=== PATIENT | female | born 1945 | race Caucasian/White ===

== ENCOUNTER 2018-07-24 13:18 | Emergency (ER) | payer SELFPAY | END 2018-07-24 15:00 | disposition left against medical advice (07) | LOC: FTE 13:18 | DX: Z53.21 Procedure and treatment not carried out due to patient leaving prior to being seen by health care provider (principal) ==

== ENCOUNTER 2018-07-26 11:38 | Observation (INO) | payer MEDICARE, MEDICAID ==
[2018-07-26] MEDS: ASPIRIN 325 MG TAB PO (13:40)
[2018-07-26 14:16] LABS: ADD MAN DIFF? NO
[2018-07-26 14:19] LABS: ABNORMAL IP MESSAGE 1; BASOPHILS % 0.2 % (0.0-2.0); EOSINOPHILS # 0.1 10^3/ul (0.0-0.5); EOSINOPHILS % 0.6 % (0.0-7.0); HEMATOCRIT 40.7 % (37.0-47.0); HEMOGLOBIN 13.1 g/dl (12.0-16.0); LYMPHOCYTES # 1.2 10^3/ul (0.8-2.9); MEAN CORPUSCULAR HEMOGLOBIN 29.8 pg (29.0-33.0); MEAN CORPUSCULAR HGB CONC 32.2 g/dl (32.0-37.0); MEAN CORPUSCULAR VOLUME 92.5 fl (82.0-101.0); MEAN PLATELET VOLUME 13.1 fl (7.4-10.4); MONOCYTE # 1.6 10^3/ul (0.3-0.9); MONOCYTES % 11.8 % (0.0-11.0); NEUTROPHIL # 10.5 10^3/ul (1.6-7.5); NEUTROPHILS % 78.1 % (39.0-77.0); PLATELET COUNT 186 10^3/UL (140-415); RED CELL DISTRIBUTION WIDTH 14.1 % (11.5-14.5)
[2018-07-26 14:19] LABS: WHITE BLOOD COUNT 13.5 10^3/ul (4.8-10.8)
[2018-07-26 14:26] LABS: POSITIVE DIFF @See below
[2018-07-26 14:41] LABS: ANION GAP 8 (5-13); BLOOD UREA NITROGEN 19 mg/dl (7-20); CALCIUM 9.1 mg/dl (8.4-10.2); CARBON DIOXIDE 27 mmol/L (21-31); CHLORIDE 105 mmol/L (97-110); CREATININE 0.48 mg/dl (0.44-1.00); GLUCOSE 122 mg/dl (70-220); POTASSIUM 4.1 mmol/L (3.5-5.1); SODIUM 140 mmol/L (135-144)
[2018-07-26 14:47] LABS: INR 0.94; PROTIME 12.7 Sec (11.9-14.9)
[2018-07-26 14:48] LABS: PARTIAL THROMBOPLASTIN TIME 30.5 Sec (23.0-35.0)
[2018-07-26 14:53] LABS: TROPONIN-I < 0.012 ng/ml (0.000-0.120)
[2018-07-26 15:20] LABS: D-DIMER 823.08 ng/ml (<460)
[2018-07-26] MEDS: IBUPROFEN 600 MG TAB PO (16:00)
[2018-07-26] MEDS ORDERED: ONDANSETRON 4 MG INJ IV ×2 (16:00→17:00)
[2018-07-26] MEDS ORDERED: ACETAMINOPHEN 325 MG TAB PO ×2 (16:00→17:00)
[2018-07-26] MEDS ORDERED: morphine 2 MG INJ IV (17:00)
[2018-07-26] MEDS ORDERED: NACL 0.9% 3 ML SYG IV (17:00)
[2018-07-26] MEDS ORDERED: DIPHENHYDRAMINE 25 MG CAP PO (17:00)
[2018-07-26] MEDS ORDERED: MAGNESIUM HYDROXIDE 30ML CUP PO (17:00)
[2018-07-26] MEDS ORDERED: HYDROCODONE/APAP (5/325) TAB PO (17:00)
[2018-07-26] MEDS ORDERED: DOCUSATE SODIUM 100 MG CAP PO (17:00)
[2018-07-26] MEDS ORDERED: BISACODYL (EC) 5 MG TAB PO (17:00)
[2018-07-26] MEDS: IOHEXOL 100 ML (17:51)
[2018-07-26] MEDS: SOD CHLORIDE 0.9% 100 ML (17:51)
[2018-07-26] MEDS: MAGNESIUM OXIDE 400 MG TAB PO (18:15)
[2018-07-26] MEDS: NAPROXEN 500 MG TAB PO (18:15)
[2018-07-26] MEDS: CEFTRIAXONE 2 GM/50 ML (PMX) 50 ML IVPB (18:28)
[2018-07-26 20:08] LABS: CREATINE KINASE 81 IU/L (23-200)
[2018-07-26 20:20] LABS: CK-MB 2.47 ng/ml (0.0-2.4); TROPONIN-I < 0.012 ng/ml (0.000-0.120)
[2018-07-26] MEDS: SOD CHLORIDE 0.9% 1,000 ML IV (21:27)
[2018-07-26] MEDS: RANITIDINE 150 MG TAB PO (22:27)
[2018-07-26] MEDS ORDERED: IBUPROFEN 600 MG TAB PO (23:00)
[2018-07-27 01:19] LABS: CREATINE KINASE 60 IU/L (23-200)
[2018-07-27 01:32] LABS: CK INDEX 3.4; CK-MB 2.03 ng/ml (0.0-2.4); TROPONIN-I < 0.012 ng/ml (0.000-0.120)
[2018-07-27] MEDS: ALBUTEROL 0.083% (NEB) 2.5 MG/3 ML AMP HHN (01:35)
[2018-07-27] MEDS: GUAIFENESIN/DM 5ML CUP PO (01:46)
[2018-07-27] MEDS: SOD CHLORIDE 0.9% 1,000 ML IV ×3 (02:50→12:50)
[2018-07-27 06:41] LABS: ADD MAN DIFF? NO
[2018-07-27 06:48] LABS: WHITE BLOOD COUNT 11.9 10^3/ul (4.8-10.8)
[2018-07-27 06:48] LABS: BASOPHILS % 0.3 % (0.0-2.0); EOSINOPHILS # 0.1 10^3/ul (0.0-0.5); HEMATOCRIT 40.5 % (37.0-47.0); HEMOGLOBIN 12.6 g/dl (12.0-16.0); LYMPHOCYTES # 1.8 10^3/ul (0.8-2.9); LYMPHOCYTES % 15.5 % (15.0-51.0); MEAN CORPUSCULAR HEMOGLOBIN 29.2 pg (29.0-33.0); MEAN CORPUSCULAR HGB CONC 31.1 g/dl (32.0-37.0); MEAN PLATELET VOLUME 12.5 fl (7.4-10.4); MONOCYTE # 1.3 10^3/ul (0.3-0.9); MONOCYTES % 11.1 % (0.0-11.0); NEUTROPHIL # 8.5 10^3/ul (1.6-7.5); NEUTROPHILS % 71.6 % (39.0-77.0); PLATELET COUNT 172 10^3/UL (140-415); RED BLOOD COUNT 4.31 10^6/ul (4.20-5.40)
[2018-07-27 07:00] LABS: INR 1.06; PROTIME 13.9 Sec (11.9-14.9); PT RATIO 1.1
[2018-07-27 07:10] LABS: CHOL/HDL RATIO 2.5 RATIO; HDL CHOLESTEROL 57 mg/dl (33-92); LDL CHOLESTEROL,CALCULATED 75 mg/dl; TRIGLYCERIDES 59 mg/dl (0-149)
[2018-07-27 07:10] LABS: CHOLESTEROL 144 mg/dl (100-200)
[2018-07-27 07:14] LABS: TROPONIN-I < 0.012 ng/ml (0.000-0.120)
[2018-07-27 07:22] LABS: ALANINE AMINOTRANSFERASE 13 IU/L (13-69); ALBUMIN 3.4 g/dl (3.3-4.9); ALBUMIN/GLOBULIN RATIO 1.21; ALKALINE PHOSPHATASE 69 IU/L (42-121); ANION GAP 5 (5-13); ASPARTATE AMINO TRANSFERASE 19 IU/L (15-46); BILIRUBIN,INDIRECT 0.2 mg/dl (0-1.1); BILIRUBIN,TOTAL 0.2 mg/dl (0.2-1.3); BLOOD UREA NITROGEN 20 mg/dl (7-20); CALCIUM 8.8 mg/dl (8.4-10.2); CARBON DIOXIDE 33 mmol/L (21-31); CHLORIDE 105 mmol/L (97-110); CREATININE 0.61 mg/dl (0.44-1.00); GLUCOSE 119 mg/dl (70-220); PHOSPHORUS 4.8 mg/dl (2.5-4.9); POTASSIUM 4.3 mmol/L (3.5-5.1); SODIUM 143 mmol/L (135-144); TOTAL PROTEIN 6.2 g/dl (6.1-8.1)
[2018-07-27 07:25] LABS: HEMOGLOBIN A1C 5.6 % (0-5.9)
[2018-07-27] MEDS: NICOTINE (14 MG/24 HR) PATCH TRANSDERM (08:24)
[2018-07-27] MEDS: ENOXAPARIN 40 MG/0.4 ML SYG SC (08:25)
[2018-07-27] MEDS: RANITIDINE 150 MG TAB PO (08:25)
[2018-07-27] MEDS: MAGNESIUM OXIDE 400 MG TAB PO (08:25)
[2018-07-29 13:47] LABS: NIL 0.03 IU/mL; QUANTIFERON(R)-TB GOLD NEGATIVE (NEGATIVE); TB2-NIL 0.01 IU/mL
[2018-07-31 07:11] LABS: PROCALCITONIN <0.10 ng/mL (<0.10)
== END 2018-07-27 21:10 | disposition left against medical advice (07) ==
LOC: E/R 11:38 → 5EC 07-27 17:13 → 6WM 07-27 17:20 → 5EC 07-27 18:12 → 6WM 15:54
DX: R65.10 Systemic inflammatory response syndrome (SIRS) of non-infectious origin without acute organ dysfunction (principal); J40 Bronchitis, not specified as acute or chronic; R07.9 Chest pain, unspecified; R09.1 Pleurisy; J44.9 Chronic obstructive pulmonary disease, unspecified; R62.7 Adult failure to thrive; Z68.29 Body mass index [BMI] 29.0-29.9, adult; F43.10 Post-traumatic stress disorder, unspecified; Z91.19 Patient's noncompliance with other medical treatment and regimen; F32.9 Major depressive disorder, single episode, unspecified; R94.31 Abnormal electrocardiogram [ECG] [EKG]; Z72.0 Tobacco use; Z59.0 Homelessness
CPT/HCPCS: 36415; 71045; 71275; 80048; 80053; 80061; 82550; 82553; 83036; 83735; 84100; 84145; 84443; 84484; 85025; 85378; 85610; 85730; 86480; 93005; 94664; 99217; 99285-25; G0378

== ENCOUNTER 2018-07-30 13:40 | Emergency (ER) | payer MEDICARE, MEDICAID | END 2018-07-30 17:15 | disposition home or self-care (01) | LOC: E/R 13:40 | DX: H66.91 Otitis media, unspecified, right ear (principal); F29 Unspecified psychosis not due to a substance or known physiological condition; I10 Essential (primary) hypertension; R40.2142 Coma scale, eyes open, spontaneous, at arrival to emergency department; R40.2362 Coma scale, best motor response, obeys commands, at arrival to emergency department; R40.2252 Coma scale, best verbal response, oriented, at arrival to emergency department | CPT/HCPCS: 99285 ==